=== PATIENT | female | born 1980 | race Caucasian/White ===

== ENCOUNTER 2016-05-07 22:30 | Emergency (ER) | payer OTHER ==
[~2016-05-07] VITALS: Ht 170.2 cm; Wt 71.0 kg
[~2016-05-07 22:30] MED LIST: PREN1TAB17 PO
[2016-05-07 22:43] VITALS: Ht 170.2 cm; Wt 71.0 kg
--- NOTE | 2016-05-08 00:28 | ERD ---
ER Documentation Chief Complaint Date/Time DATE: 05/08/16 TIME: 00:26 Chief Complaint pressure LEAL exacerbated with bright lights and loud sounds HPI 35-year-old female presents to emergency department for complete of frontal headache started today, patient states that she has been having on and off for the last year. Patient describes the pain as pressure type pain, throbbing pain , 8/10 scale, worse upon seeing lights and loud sounds. Patient did not take medications for symptoms. Patient denies any head injury. Patient denies any nausea vomiting. Patient denies any blurry vision. Patient denies any fever or chills. Patient denies any neck pain. Patient denies any dizziness. She denies any focal weakness numbness or tingling. ROS All systems reviewed and are negative except as per history of present illness. Medications Home Meds Reported Medications Vit-Iron Fumarate-FA ( Tablet) 1 Each Tablet, 1 EACH PO DAILY 10/09/13 Allergies Allergies: Coded Allergies: No Known Allergies (Verified Allergy, Mild, 10/09/13) PMhx/Soc Medical and Surgical Hx: pt denies Medical Hx, pt denies Surgical Hx History of Surgery: No Anesthesia Reaction: No Hx Neurological Disorder: No Hx Respiratory Disorders: No Hx Cardiac Disorders: No Hx Psychiatric Problems: No Hx Miscellaneous Medical Probl: No Hx Alcohol Use: No Hx Substance Use: Yes (recovering, previously) Hx Tobacco Use: Yes Smoking Status: Never smoker FmHx Family History: other (stroke) Physical Exam Vitals Vital Signs Date Time Temp Pulse Resp B/P Pulse Ox O2 Delivery O2 Flow Rate FiO2 05/07/16 22:43 98.4 85 18 106/71 98 Physical Exam GENERAL: The patient is well developed and appropriate for usual state of health, in no apparent distress. CHEST: Clear to auscultation bilaterally. There are no rales, wheezes or rhonchi. HEART: Regular rate and rhythm. No murmurs, clicks, rubs or gallops. No S3 or S4. ABDOMEN: Soft, nontender and nondistended. Good bowel sounds. No rebound or guarding. No gross peritonitis. No gross organomegaly or masses. No Graham sign or McBurney point tenderness. BACK: No midline or flank tenderness. EXTREMITIES: Equal pulses bilaterally. There is no peripheral clubbing, cyanosis or edema. No focal swelling or erythema. Full range of motion. Grossly neurovascularly intact. NEURO: Alert and oriented. Cranial nerves 2-12 intact. Motor strength in all 4 extremities with 5/5 strength. Sensation grossly intact. Normal speech and gait. Negative Romberg sign. Negative pronator drift. SKIN: There is no apparent rash or petechia. The skin is warm and dry. HEMATOLOGIC AND LYMPHATIC: There is no evidence of excessive bruising or lymphedema. No gross cervical, axillary, or inguinal lymphadenopathy. Results 24 hrs Current Medications Medications (Trade) Dose Ordered Sig/Corinne Route PRN Reason Start Time Stop Time Status Last Admin Dose Admin Acetaminophen/ Butalbital/ Caffeine (Fioricet) 1 tab ONCE ONCE PO 05/08/16 00:30 05/08/16 00:31 DC 05/08/16 00:38 Patient was given medication for pain here in emergency department, after treatment, patient verbalized feeling much better. Patient's pain is improved. PROCEDURE: CT Brain without contrast. CLINICAL INDICATION: Headache. TECHNIQUE: A CT of the brain was performed utilizing axial sections from the skull base through the vertex without contrast. Multiplanar re-formations were generated. Images were reviewed on a high-resolution PACS workstation. CTDIvol: 45.01 mGy. DLP: 720.23 mGy-cm. COMPARISON: None available FINDINGS: There is no cerebral volume loss. No hydrocephalus is seen. There is no mass effect. No acute intracranial hemorrhage is identified. There is no extra-axial collection. Rao-white matter differentiation is preserved. There is minimal mucosal disease in the paranasal sinuses. The visualized mastoid air cells are clear. The ossesous structures are unremarkable. The extracranial soft tissues are unremarkable. IMPRESSION: 1. No acute intracranial pathology. RPTAT: HTAR .Artemio Wyman MD, MD Date Time Electronically viewed and signed by .Artemio Wyman MD, MD on 05/08/2016 01:08 .R/ Procedures/MDM Medical Decision Making: Patient's headache most likely is consistent with tension headache possible migraine. There is low suspicion for neurological emergencies at this time since patients neurologic exam is normal. Patient did not have any altered level consciousness, vomiting, changes in balance or memory and did not have any head injury. Patients CT scan of the head does not show any neurological emergencies at this time. Departure Diagnosis: Primary Impression: Headache Headache type: unspecified Headache chronicity pattern: acute headache Intractability: not intractable Qualified Code: R51 - Acute nonintractable headache, unspecified headache type Condition: Stable Patient Instructions: Self-Care for Headaches MANDA BOLAND NP May 08, 2016 00:27
[2016-05-08] MEDS ORDERED: ACET/BUTAL/CAFF TAB PO ONE (00:30)
--- NOTE | 2016-05-08 01:08 | RADRPT ---
PROCEDURE: CT Brain without contrast. CLINICAL INDICATION: Headache. TECHNIQUE: A CT of the brain was performed utilizing axial sections from the skull base through th e vertex without contrast. Multiplanar re-formations were generated. Images were reviewed on a high- resolution PACS workstation. CTDIvol: 45.01 mGy. DLP: 720.23 mGy-cm. COMPARISON: None available FINDINGS: There is no cerebral volume loss. No hydrocephalus is seen. There is no mass effect. No acute intrac ranial hemorrhage is identified. There is no extra-axial collection. Rao-white matter differentiati on is preserved. There is minimal mucosal disease in the paranasal sinuses. The visualized mastoid air cells are cinthya ar. The ossesous structures are unremarkable. The extracranial soft tissues are unremarkable. IMPRESSION: 1. No acute intracranial pathology. RPTAT: HTAR .Artemio Wyman MD, Date Time Electronically viewed and signed by .Artemio Wyman MD, on 05/08/2016 01:08 .R/
[2016-05-08] MEDS ORDERED: FIORICET PO (01:32)
[2016-05-08 02:06] VITALS: BP 104/70; PULSE 78; RESP 17; TEMP 98.7
== END 2016-05-08 02:05 | disposition home or self-care (01) ==
LOC: FTE 22:30
DX: R51 Headache (principal); Z87.891 Personal history of nicotine dependence
CPT/HCPCS: 70450; Z7610

== ENCOUNTER 2017-05-10 15:27 | Emergency (ER) | END 2017-05-10 18:55 | disposition home or self-care (01) ==